=== PATIENT | female | born 1990 | race Caucasian/White ===

== ENCOUNTER 2016-11-11 14:43 | Emergency (ER) | payer SELFPAY ==
[~2016-11-11] VITALS: Ht 157.5 cm; Wt 69.5 kg
[2016-11-11 17:05] LABS: microscopic required? YES; urine erythrocyte 1+ (NEGATIVE)
[2016-11-11 17:07] LABS: BASOPHIL % 0.5 % (0-2); PLATELET COUNT 251 x10^3mcL (130-400); RED CELL DISTRIBUTION WIDTH 13.1 % (11.5-14.5)
[2016-11-11 19:16] VITALS: BP 125/68
== END 2016-11-11 19:16 | disposition home or self-care (01) ==
LOC: ED 14:43
PROVIDERS: Emergency Medicine
DX: O36.4XX0 Maternal care for intrauterine death, not applicable or unspecified (principal); Z3A.01 Less than 8 weeks gestation of pregnancy